=== PATIENT | female | born 1945 | race Caucasian/White ===

== ENCOUNTER 2016-06-11 07:39 | Emergency (ER) | payer OTHER, MEDICARE ==
--- NOTE | 2016-06-11 08:12 | ER Document Report ---
ED General - General Chief Complaint: General Weakness Stated Complaint: WEAKNESS Time seen by provider: 08:11 Mode of Arrival: Ambulatory Information source: Patient Notes: 71 yo younger than her years, non smoker, non dm, nonhyperlipidemic, mild untx htn, because nauseated (lasted 5 minutes) and weak (not resolved) -when walking back to bathroom for shower after drinking her usual silica mixed in coconut water at 6:40 am. Got into the shower and felt like she might get woozy , took warm shower and got dressed. She still felt like she had no energy with apprehensive. Took BP 165/85 and pulse was 95. Hasn,t seen dr rocha at [facility] since February. Recent cardiac work up 2 years ago in [place] ( SOB at time). Cramping with suprpubic area yesterday, attributed it to coffee. No surgeries. Hx. Rosacea, Lichen planus, gastritis, sensitive to chemicals, ankle swelling during day-sits at work (resolveds at night). TRAVEL OUTSIDE OF THE [place] IN LAST 30 DAYS: No - Related Data Allergies/Adverse Reactions: codeine [Codeine] Adverse Reaction (Mild, Verified 06/17/14 02:19) GI upset Past Medical History - General Information source: Patient - Social History Smoking Status: Never Smoker Frequency of alcohol use: None Drug Abuse: None Lives with: Family Family History: Reviewed & Not Pertinent Patient has suicidal ideation: No Patient has homicidal ideation: No - Past Medical History Cardiac Medical History: Reports: Hx Hypertension - untreated mild Pulmonary Medical History: Reports: Hx Asthma Renal/ Medical History: Denies: Hx Peritoneal Dialysis GI Medical History: Reports: Other - gastritis Musculoskeltal Medical History: Reports Hx Arthritis - on juice for this Skin Medical History: Reports Other - rosacea, lichen planus Surgical Hx: Negative - Immunizations Hx Diphtheria, Pertussis, Tetanus Vaccination: No Review of Systems - Review of Systems Constitutional: See HPI EENT: No symptoms reported Cardiovascular: No symptoms reported Respiratory: No symptoms reported Gastrointestinal: No symptoms reported Genitourinary: No symptoms reported Female Genitourinary: No symptoms reported Musculoskeletal: No symptoms reported Skin: No symptoms reported Hematologic/Lymphatic: No symptoms reported Neurological/Psychological: No symptoms reported Physical Exam - Vital signs Vitals: Temp Pulse Resp BP Pulse Ox 98.1 F 76 16 172/81 H 100 06/11/16 07:42 06/11/16 07:42 06/11/16 07:42 06/11/16 07:42 06/11/16 07:42 Interpretation: Normal - General General appearance: Appears well, Alert - HEENT Head: Normocephalic, Atraumatic Eyes: Normal Conjunctiva: Normal Pupils: PERRL Nerve palsy: No Tympanic membrane: Normal Mouth/Lips: Normal Pharynx: Normal Neck: Supple. No: Lymphadenopathy, Thyromegally - Respiratory Respiratory status: No respiratory distress Chest status: Nontender Breath sounds: Normal Chest palpation: Normal - Cardiovascular Rhythm: Regular Heart sounds: Normal auscultation Murmur: No - Abdominal Inspection: Normal Distension: No distension Bowel sounds: Normal Tenderness: Nontender Organomegaly: No organomegaly - Back Back: Normal, Nontender. No: CVA tenderness - Extremities General upper extremity: Normal inspection, Nontender, Normal color, Normal ROM , Normal temperature General lower extremity: Normal inspection, Nontender, Normal color, Normal ROM , Normal temperature, Normal weight bearing. No: Ariane's sign - Neurological Neuro grossly intact: Yes Cognition: Normal Orientation: AAOx4 Austin Coma Scale Eye Opening: Spontaneous Jannet Coma Scale Verbal: Oriented Jannet Coma Scale Motor: Obeys Commands Austin Coma Scale Total: 15 Speech: Normal Motor strength normal: LUE, RUE, LLE, RLE Sensory: Normal - Psychological Associated symptoms: Normal affect, Normal mood - Skin Skin Temperature: Warm Skin Moisture: Dry Skin Color: Normal Skin irregularity: negative: Rash Course - Re-evaluation Re-evalutation: 06/11/16 11:00 EKG, chest x-ray and labs are normal except for mildly elevated total bilirubin of 1.5. The patient's symptoms of weakness have resolved while in the emergency room. I had her sit and stand measuring her vital signs which are normal and she has no symptom of weakness or new or different symptoms that we haven't discussed. I have consulted with the supervisory physician per [facility] Guidelines for disposition.. Patient can go home to follow-up with her primary care doctor Dr. Rocha at [facility]. - Vital Signs Vital signs: Temp Pulse Resp BP Pulse Ox 98.1 F 76 22 H 125/75 99 06/11/16 07:42 06/11/16 07:42 06/11/16 11:01 06/11/16 11:01 06/11/16 11:01 - Laboratory Result Diagrams: 06/11/16 08:00 06/11/16 08:00 Laboratory results interpreted by me: 06/11/16 06/11/16 08:00 08:00 Total Bilirubin 1.5 H Creatine Kinase 23 L Ur Leukocyte Esterase SMALL H - EKG Interpretation by Me EKG shows normal: Sinus rhythm Rate: Normal Rhythm: NSR Discharge - Discharge Clinical Impression: Nausea, Weakness Condition: Good Disposition: HOME, SELF-CARE Instructions: Weakness ([facility]), Nausea or Vomiting, Nonspecific ([facility]) Additional Instructions: Call and schedule appointment to follow up with your doctor at [facility] internal medicine tomorrow which is Wednesday Return to the emergency room for any new or concerning symptoms or if you feel worse. Referrals: [Primary Care Provider] - Follow up as needed
[2016-06-11] MEDS ORDERED: ASPIRIN 81 MG TABLET, CHEWABLE PO ONE (08:36)
[2016-06-11 08:47] LABS: APPEARANCE,URINE CLEAR; BILIRUBIN,URINE NEGATIVE (NEGATIVE); GLUCOSE, URINE NEGATIVE (NEGATIVE); KETONES,URINE NEGATIVE (NEGATIVE); LEUKOCYTE ESTERASE,URINE SMALL (NEGATIVE); NITRITE,URINE NEGATIVE (NEGATIVE); PROTEIN,URINE NEGATIVE (NEGATIVE); URINE SPECIFIC GRAVITY 1.005; UROBILINOGEN,URINE NEGATIVE mg/dL (<2.0)
[2016-06-11 09:01] LABS: ALANINE AMINOTRANSFERASE 25 U/L (9-52); ALKALINE PHOSPHATASE 62 U/L (38-126); ANION GAP 10 (5-19); ASPARTATE AMINO TRANSFERASE 22 U/L (14-36); BILIRUBIN,TOTAL 1.5 mg/dL (0.2-1.3); BLOOD UREA NITROGEN 13 mg/dL (7-20); CALCIUM 9.4 mg/dL (8.4-10.2); CARBON DIOXIDE 29 mmol/L (22-30); CHLORIDE 104 mmol/L (98-107); CREATINE KINASE 23 U/L (30-135); CREATININE RESULT 0.79 mg/dL (0.52-1.25); GLUCOSE 95 mg/dL (75-110); SODIUM 143.4 mmol/L (137-145); TOTAL PROTEIN 6.7 g/dL (6.3-8.2)
[2016-06-11 09:12] LABS: CREATINE KINASE MB 0.43 ng/mL (<4.55)
[2016-06-11 09:13] LABS: TROPONIN I < 0.012 ng/mL
[2016-06-11 09:28] LABS: ABSOLUTE EOSINOPHILS # (AUTO) 0.2 10^3/uL (0.0-0.6); ABSOLUTE LYMPHOCYTES (AUTO) 1.5 10^3/uL (0.5-4.7); ABSOLUTE MONOCYTES (AUTO) 0.4 10^3/uL (0.1-1.4); ABSOLUTE NEUT (AUTO) 3.8 10^3/uL (1.7-8.2); BASOPHILS % (AUTO) 0.4 % (0-2); HEMATOCRIT 40.8 % (36.0-47.0); HEMOGLOBIN 13.8 g/dL (12.0-15.5); HGB HCT DIFFERENCE 0.6; LYMPHOCYTES % (AUTO) 24.9 % (13-45); MEAN CORPUSCULAR HEMOGLOBIN 28.7 pg (27.0-33.4); MEAN CORPUSCULAR HGB CONC 33.7 g/dL (32.0-36.0); MEAN CORPUSCULAR VOLUME 85 fl (80-97); MONOCYTES % (AUTO) 6.5 % (3-13); RED CELL DISTRIBUTION WIDTH 13.9 % (11.5-14.0); SEGMENTED NEUTROPHILS % (AUTO) 64.2 % (42-78); WHITE BLOOD COUNT 5.8 10^3/uL (4.0-10.5)
[2016-06-11 11:48] VITALS: BP 125/75
--- NOTE | 2016-06-11 12:54 | EKG REPORT ---
SEVERITY:- NORMAL ECG - SINUS RHYTHM : Confirmed by: Caitie Downs MD 11-Jun-2016 12:54:08
== END 2016-06-11 11:45 | disposition home or self-care (01) ==
LOC: ER 07:39
DX: R53.1 Weakness (principal); R11.0 Nausea; I10 Essential (primary) hypertension; J45.909 Unspecified asthma, uncomplicated; Z87.19 Personal history of other diseases of the digestive system
CPT/HCPCS: 36415; 71010; 80053; 81001; 82550; 82553; 84484; 85025; 87086; 93005; 93010; 99285

== ENCOUNTER 2016-12-03 03:55 | Emergency (ER) | payer OTHER, MEDICARE ==
[2016-12-03] MEDS ORDERED: HEPARIN SOD (PORCINE) 1,000 UNIT/ML 10 ML VIAL IV PRN (06:23)
[2016-12-03] MEDS ORDERED: HEPARIN SODIUM,PORCINE/D5W 250 ML IV PRN (06:23)
[2016-12-03] MEDS ORDERED: HEPARIN SOD (PORCINE) 1,000 UNIT/ML 10 ML VIAL IV ONE (06:23)
[2016-12-03] MEDS ORDERED: NITROGLYCERIN 0.4 MG/TAB 25 TAB/BOTTLE SL PRN (06:23)
--- NOTE | 2016-12-03 06:25 | ER Document Report ---
ED General - General Time Seen by Provider: 12/03/16 06:23 Mode of Arrival: Ambulatory Information source: Patient Notes: 71 yr old female presents with complaints of chest pain and bilateral arm pain. Pt denies any fevers or chills, states the pain occured initially last night, then again this morning. pt had a heart cath 15 yrs ago, stress test 2 years ago TRAVEL OUTSIDE OF THE [place] IN LAST 30 DAYS: No - HPI Onset: Yesterday Onset/Duration: Sudden Quality of pain: Achy, Sharp Severity: Mild Pain Level: 1 Associated symptoms: Chest pain Exacerbated by: Denies Relieved by: Denies Similar symptoms previously: No Recently seen / treated by doctor: No - Related Data Allergies/Adverse Reactions: codeine [Codeine] Adverse Reaction (Mild, Verified 06/17/14 02:19) GI upset Past Medical History - Social History Smoking Status: Never Smoker Cigarette use (# per day): No Chew tobacco use (# tins/day): No Smoking Education Provided: No Family History: Reviewed & Not Pertinent - Past Medical History Cardiac Medical History: Reports: Hx Hypertension - untreated mild Pulmonary Medical History: Reports: Hx Asthma Denies: Hx Bronchitis, Hx COPD, Hx Pneumonia Renal/ Medical History: Denies: Hx Peritoneal Dialysis Musculoskeltal Medical History: Reports Hx Arthritis - on juice for this - Immunizations Hx Diphtheria, Pertussis, Tetanus Vaccination: No Review of Systems - Review of Systems Notes: REVIEW OF SYSTEMS: CONSTITUTIONAL : Denies fever, chills, or sweats. Denies recent illness. EENT: Denies eye, ear, throat, or mouth pain or symptoms. Denies nasal or sinus congestion or discharge. Denies throat, tongue, or mouth swelling or difficulty swallowing. CARDIOVASCULAR: Admits to chest pain RESPIRATORY: Denies cough, cold, or chest congestion. Denies shortness of breath, difficulty breathing, or wheezing. GASTROINTESTINAL: Denies abdominal pain or distention. Denies nausea, vomiting , or diarrhea. Denies blood in vomitus, stools, or per rectum. Denies black, tarry stools. Denies constipation. GENITOURINARY: Denies difficulty urinating, painful urination, burning, frequency, blood in urine, or discharge. FEMALE GENITOURINARY: Denies vaginal bleeding, heavy or abnormal periods, irregular periods. Denies vaginal discharge or odor. MUSCULOSKELETAL: Admits to bilateral arm pain SKIN: Denies rash, lesions or sores. HEMATOLOGIC : Denies easy bruising or bleeding. LYMPHATIC: Denies swollen, enlarged glands. NEUROLOGICAL: Denies confusion or altered mental status. Denies passing out or loss of consciousness. Denies dizziness or lightheadedness. Denies headache. Denies weakness or paralysis or loss of use of either side. Denies problems with gait or speech. Denies sensory loss, numbness, or tingling. Denies seizures. PSYCHIATRIC: Denies anxiety or stress. Denies depression, suicidal ideation, or homicidal ideation. ALL OTHER SYSTEMS REVIEWED AND NEGATIVE. PHYSICAL EXAMINATION: GENERAL: Well-appearing, well-nourished and in no acute distress. HEAD: Atraumatic, normocephalic. EYES: Pupils equal round and reactive to light, extraocular movements intact, conjunctiva are normal. ENT: Nares patent, oropharynx clear without exudates. Moist mucous membranes. NECK: Normal range of motion, supple without lymphadenopathy LUNGS: Breath sounds clear to auscultation bilaterally and equal. No wheezes rales or rhonchi. HEART: Regular rate and rhythm without murmurs ABDOMEN: Soft, nontender, nondistended abdomen. No guarding, no rebound. No masses appreciated. Female : deferred Musculoskeletal: Normal range of motion, no pitting or edema. No cyanosis. NEUROLOGICAL: Cranial nerves grossly intact. Normal speech, normal gait. Normal sensory, motor exams PSYCH: Normal mood, normal affect. SKIN: Warm, Dry, normal turgor, no rashes or lesions noted. Dictation was performed using [employer] voice recognition software Course - Re-evaluation Re-evalutation: 12/03/16 06:24 notified by nursing shankar is .134, big piney paged, heparin ordered 12/03/16 06:50 Dr. Pearce accepted patient for transfer, patient stable at this time - Diagnostic Test Radiology reviewed: Image reviewed, Reports reviewed - No acute abnormality - EKG Interpretation by Me EKG shows normal: Sinus rhythm, Waldron, Intervals, QRS Complexes Critical Care Note - Critical Care Note Total time excluding time spent on procedures (mins): 34 Comments: 34 minutes of critical care time spent in direct contact evaluating and reevaluating the patient, treating symptoms, reviewing labs and studies and speaking with family and consultants excluding any procedures Discharge - Discharge Clinical Impression: Non-ST elevation (NSTEMI) myocardial infarction Condition: Stable Disposition: [facility]
[2016-12-03] MEDS ORDERED: ASPIRIN 325 MG TABLET PO ONE (07:00)
[2016-12-03] MEDS ORDERED: DIPHENHYDRAMINE HCL 25 MG CAPSULE PO ONE (07:00)
[2016-12-03 07:23] LABS: ALANINE AMINOTRANSFERASE 25 U/L (9-52); ALBUMIN 3.7 g/dL (3.5-5.0); ALKALINE PHOSPHATASE 55 U/L (38-126); ANION GAP 7 (5-19); ASPARTATE AMINO TRANSFERASE 20 U/L (14-36); BILIRUBIN,DIRECT 0.2 mg/dL (0.0-0.4); BILIRUBIN,TOTAL 0.9 mg/dL (0.2-1.3); BLOOD UREA NITROGEN 18 mg/dL (7-20); CALCIUM 8.8 mg/dL (8.4-10.2); CARBON DIOXIDE 26 mmol/L (22-30); CHLORIDE 108 mmol/L (98-107); CREATINE KINASE 21 U/L (30-135); CREATININE RESULT 0.77 mg/dL (0.52-1.25); GLUCOSE 102 mg/dL (75-110); LIPASE 103.4 U/L (23-300); POTASSIUM 3.9 mmol/L (3.6-5.0); SODIUM 140.8 mmol/L (137-145); TOTAL PROTEIN 6.4 g/dL (6.3-8.2)
[2016-12-03 07:24] LABS: CREATINE KINASE MB 0.5 ng/mL (<4.55)
[2016-12-03 07:25] LABS: TROPONIN I 0.134 ng/mL
[2016-12-03 07:26] LABS: ABSOLUTE EOSINOPHILS # (AUTO) 0.2 10^3/uL (0.0-0.6); ABSOLUTE LYMPHOCYTES (AUTO) 1.6 10^3/uL (0.5-4.7); ABSOLUTE MONOCYTES (AUTO) 0.3 10^3/uL (0.1-1.4); ABSOLUTE NEUT (AUTO) 3.5 10^3/uL (1.7-8.2); BASOPHILS % (AUTO) 0.6 % (0-2); HEMATOCRIT 39.4 % (36.0-47.0); HEMOGLOBIN 13.2 g/dL (12.0-15.5); HGB HCT DIFFERENCE 0.2; LYMPHOCYTES % (AUTO) 28.6 % (13-45); MEAN CORPUSCULAR HEMOGLOBIN 28.6 pg (27.0-33.4); MEAN CORPUSCULAR HGB CONC 33.5 g/dL (32.0-36.0); MEAN CORPUSCULAR VOLUME 85 fl (80-97); RED BLOOD COUNT 4.62 10^6/uL (3.72-5.28); RED CELL DISTRIBUTION WIDTH 13.7 % (11.5-14.0); SEGMENTED NEUTROPHILS % (AUTO) 60.8 % (42-78); WHITE BLOOD COUNT 5.8 10^3/uL (4.0-10.5)
[2016-12-03 07:42] LABS: PARTIAL THROMBOPLASTIN TIME 34.3 SEC (23.5-35.8)
[2016-12-03 08:22] VITALS: BP 123/63
--- NOTE | 2016-12-03 08:36 | RADIOLOGY REPORT (SQ) ---
EXAM DESCRIPTION: CHEST PA/LAT COMPLETED DATE/TIME: 12/03/2016 8:22 am REASON FOR STUDY: CHEST PAIN COMPARISON: October 2010 EXAM PARAMETERS: NUMBER OF VIEWS: two views TECHNIQUE: Digital Frontal and Lateral radiographic views of the chest acquired. RADIATION DOSE: NA LIMITATIONS: none FINDINGS: LUNGS AND PLEURA: No opacities, masses or pneumothorax. No pleural effusion. MEDIASTINUM AND HILAR STRUCTURES: No masses or contour abnormalities. HEART AND VASCULAR STRUCTURES: Heart normal size. No evidence for failure. BONES: No acute findings. HARDWARE: None in the chest. OTHER: No other significant finding. IMPRESSION: NO SIGNIFICANT RADIOGRAPHIC FINDING IN THE CHEST. TECHNICAL DOCUMENTATION: JOB ID: [id number] [employer]- All Rights Reserved
--- NOTE | 2016-12-04 06:00 | EKG REPORT ---
SEVERITY:- NORMAL ECG - SINUS RHYTHM : Confirmed by: Caitie Downs MD 04-Dec-2016 05:59:16
== END 2016-12-03 08:38 | disposition short-term general hospital (02) ==
LOC: ER 03:55
DX: I21.4 Non-ST elevation (NSTEMI) myocardial infarction (principal); R07.9 Chest pain, unspecified; M79.601 Pain in right arm; M79.602 Pain in left arm; I10 Essential (primary) hypertension; J45.909 Unspecified asthma, uncomplicated
CPT/HCPCS: 93005; 96376; 99291; 96365; 96366; 36415; 82553; 82550; 83690; 85025; 85610; 85730; 80053; 84484; 71020; 93010; J1644 ×2

== ENCOUNTER 2017-02-12 22:26 | Emergency (ER) | payer OTHER, MEDICARE | END 2017-02-12 23:00 | disposition left against medical advice (07) | LOC: ER 22:26 | DX: Z53.21 Procedure and treatment not carried out due to patient leaving prior to being seen by health care provider (principal) ==

== ENCOUNTER 2018-07-03 07:57 | Emergency (ER) | payer MEDICARE, OTHER ==
[2018-07-03 08:04] VITALS: BP 161/59
--- NOTE | 2018-07-03 09:45 | ER Document Report ---
HPI - HPI Time Seen by Provider: 07/03/18 08:15 Pain Level: 2 Notes: Patient is a 73-year-old female who presents to the emergency department with chief complaint of pain to the back of her right arm. She reports this started at approximately 3 AM. She states it is from just distal of the shoulder and radiates down to the elbow. She reports this is an intermittent pain. Patient denies any chest pain, shortness of breath, neck or jaw pain, nausea or vomiting. Patient does report recently she was moving some items around the house. - REPRODUCTIVE Reproductive: DENIES: : - MUSCULOSKELETAL Musculoskeletal: REPORTS: Extremity pain - RUE Past Medical History - General Information source: Patient - Social History Smoking Status: Never Smoker Frequency of alcohol use: None Drug Abuse: None Family History: Reviewed & Not Pertinent Patient has suicidal ideation: No Patient has homicidal ideation: No - Past Medical History Cardiac Medical History: Reports: Hx Hypertension - untreated mild Pulmonary Medical History: Reports: Hx Asthma Denies: Hx Bronchitis, Hx COPD, Hx Pneumonia Renal/ Medical History: Denies: Hx Peritoneal Dialysis Musculoskeletal Medical History: Reports Hx Arthritis - on juice for this - Immunizations Hx Diphtheria, Pertussis, Tetanus Vaccination: No Vertical Provider Document - CONSTITUTIONAL Notes: PHYSICAL EXAMINATION: GENERAL: Well-appearing, well-nourished and in no acute distress. HEAD: Atraumatic, normocephalic. EYES: Pupils equal round extraocular movements intact, conjunctiva are normal. ENT: Nares patent NECK: Normal range of motion LUNGS: No respiratory distress, lung sounds clear to auscultation bilaterally Musculoskeletal: Normal range of motion, tenderness to palpation to posterior right arm between shoulder and elbow. Slight erythema noted, no ecchymosis or swelling present. PSYCH: Normal mood, normal affect. SKIN: Warm, Dry, normal turgor, no rashes or lesions noted. - INFECTION CONTROL TRAVEL OUTSIDE OF THE [place] IN LAST 30 DAYS: No Course - Re-evaluation Re-evalutation: EKG reveals a sinus rhythm, rate of 58, normal axis with no ST segment elevations or depressions. This is unchanged from previous EKG on file. Patient's arm pain is likely musculoskeletal in nature. Will instruct patient to take [id number] ibuprofen. Strict ED return precautions were discussed as well as following up with PCP. Patient verbalizes understanding of same. - Vital Signs Vital signs: Temp Pulse Resp BP Pulse Ox 97.4 F 67 16 161/59 H 98 07/03/18 08:03 07/03/18 08:03 07/03/18 08:03 07/03/18 08:03 07/03/18 08:03 Discharge - Discharge Clinical Impression: Right arm pain Condition: Stable Disposition: HOME, SELF-CARE Additional Instructions: I do not believe there is any life-threatening cause of the pain in your right arm at this time. We did repeat an EKG which was unchanged from your previous EKG on record. I would advise taking ibuprofen 600 mg every 6 hours and see if this helps with the pain. You can also alternate ice and heat to the area whichever one helps with the pain better. Return to the emergency department if you experience swelling to the arm, redness or increased pain. Also return to the emergency department if you develop any other symptoms such as chest pain, shortness of breath, nausea, vomiting, fever or any other symptom that is concerning to you. Please follow-up with your primary care provider for follow- up. Prescriptions: Ibuprofen [Motrin 600 mg Tablet] 600 mg PO Q6H PRN #30 tablet PRN Reason:
--- NOTE | 2018-07-03 13:09 | EKG REPORT ---
SEVERITY:- NORMAL ECG - SINUS RHYTHM : Confirmed by: Caitie Downs MD 03-Jul-2018 13:08:11
== END 2018-07-03 09:56 | disposition home or self-care (01) ==
LOC: ER 07:57
DX: M79.601 Pain in right arm (principal); M25.511 Pain in right shoulder; M25.521 Pain in right elbow; I10 Essential (primary) hypertension; J45.909 Unspecified asthma, uncomplicated
CPT/HCPCS: 93005; 93010; 99283